=== PATIENT | male | born 1990 | race Caucasian/White ===

== ENCOUNTER 2017-02-16 15:55 | Emergency (ER) | payer OTHER ==
[~2017-02-16] VITALS: Ht 177.8 cm; Wt 86.6 kg
[2017-02-16 16:42] LABS: ABSOLUTE BASOPHIL COUNT 0 /CUMM (0.0-0.2); ABSOLUTE EOSINOPHIL COUNT 0.1 /CUMM (0.0-0.7); ABSOLUTE GRANULOCYTE CT 3.9 /CUMM (1.4-6.5); ABSOLUTE LYMPH COUNT 2.4 /CUMM (1.2-3.4); ABSOLUTE MONOCYTE COUNT 0.7 /CUMM (0.10-0.60); BASOPHIL % 0.5 % (0.0-2.0); EOSINOPHIL % 1.2 % (0-5); GRANULOCYTE % 55.2 % (42.2-75.2); HEMATOCRIT 45.2 % (42-52); MEAN CORPUSCULAR HGB CONC 33.5 G/DL (33.0-37.0); MEAN CORPUSCULAR VOLUME 89.5 FL (80.0-94.0); MEAN PLATELET VOLUME 8.5 FL (7.4-10.4); PLATELET COUNT 210 /CUMM (130-400); RBC DISTRIBUTION WIDTH 13.1 % (11.5-14.5); RED BLOOD CELL CT 5.05 /CUMM (4.70-6.10); WHITE BLOOD CELL COUNT 7.2 /CUMM (4.8-10.8)
--- NOTE | 2017-02-16 17:21 | ED SYNCOPE COMPLAINT ---
History of Present Illness General Chief Complaint: Syncope and Near-Syncope Stated Complaint: ?SYNCOPAL EPISODE Source: patient, family Exam Limitations: no limitations Vital Signs & Intake/Output Vital Signs & Intake/Output Vital Signs Date Time Temp Pulse Resp B/P Pulse O2 O2 Flow FiO2 Ox Delivery Rate 02/16 1758 97.7 63 16 114/54 100 Room Air 02/16 1647 Room Air 02/16 1558 96.5 68 18 123/77 98 Room Air Allergies Coded Allergies: cefaclor (From CECLOR) (Mild, RASH 02/16/17) Reconcile Medications No Known Home Medications Triage Note: TRIAGE: PT BROUGHT TO ER BY S/P SYNCOPAL EPISODE WHILE SITTING IN CAR. STATES HE WAS IN FRONT PASSENGER SEAT OF CAR GOING FROM [employer] [facility] TO HIS HOUSE WHEN HE FELT LIGHTHEADED, DIZZY AND THEN THE "TUNNEL EFFECT". STATED LOC FOR APPROX A MINUTE. STATES WAS IN HOSPITAL IN THE PAST FOR FAINTING EPISODE, "WE PRETTY MUCH RULED EVERYTHING OUT EXCEPT FOR LYME DISEASE, I NEVER GOT THE RESULTS FOR THAT". COMPLAINS ONLY OF PAIN TO LOW BACK SINCE 2 PM TODAY AFTER LIFTING WEIGHTS. Triage Nurses Notes Reviewed? yes HPI: 26-year-old male with syncope. He is brought in by private auto with his . They had just finished shopping when he was in the car on the way home where he started to feel lightheaded, dizzy, pale, diaphoretic, vision closing in on him and passed out for about a minute. There was no seizure-like activity. Patient did lose a little bit of urine when he passed out, he did say he had to urinate prior to the syncopal episode. He has no chest pain, no headaches, no nausea no vomiting no confusion. He denied any palpitations chills or sweats or fever recently. He did state that he had suffered some back pain while exercising earlier this morning, rated as an 8 out of 10 at maximum but he was not having significant back pain at the time of the syncopal event. He woke without significant confusion and shortly after the syncopal episode, within a few minutes, he felt back to normal. He has a history of syncope in the past, states that he was at [facility] for 3 days after having high fever and syncope, it was thought as though he had a tickborne illness and was treated with doxycycline. He has not had cardiology follow-up since and has had no syncopal issues. He states he normally has a resting heart rate in the 50s sometimes goes into the 40s, he confirms is because he is wearing a watch that monitors his heart rate and exercise (OSIRIS POLANCO) Past History Travel History Traveled to [place] past 21 day No Medical History Any Pertinent Medical History? see below for history Neurological: NONE EENT: NONE Cardiovascular: NONE Respiratory: NONE Gastrointestinal: NONE Hepatic: NONE Renal: NONE Musculoskeletal: NONE Psychiatric: NONE Endocrine: NONE Blood Disorders: NONE Cancer(s): NONE TECHNICIAN ASSISTANT/Reproductive: NONE Other Medical Hx: Syncope Surgical History Surgical History: none Psychosocial History What is your primary language Ukrainian Tobacco Use: Never used ETOH Use: occasional use Illicit Drug Use: denies illicit drug use Family History Hx Contributory? No (OSIRIS POLANCO) Review of Systems Review of Systems Constitutional: Reports: see HPI. EENTM: Reports: no symptoms. Respiratory: Reports: no symptoms. Cardiovascular: Reports: no symptoms. GI: Reports: no symptoms. Genitourinary: Reports: no symptoms. Musculoskeletal: Reports: no symptoms. Skin: Reports: no symptoms. Neurological/Psychological: Reports: no symptoms. All Other Systems: Reviewed and Negative (OSIRIS POLANCO) Physical Exam Physical Exam Cranial Nerves: normal hearing, normal speech, PERRL Comments: Well-developed well-nourished person in no acute distress HEENT: Normal EENT exam, extraocular motion intact, no nystagmus. Pupils equally round and reactive to light. Nose is atraumatic. External auditory canal and Tympanic membranes clear. Pharynx normal. No swelling or edema. Neck: Supple, no lymphadenopathy, normal range of motion without pain or tenderness Back: Nontender, no CVA tenderness. Full range of motion Cardiovascular: Regular rate and rhythms no murmurs, normal JVP Respiratory: Chest nontender. No respiratory distress. Breath sounds clear to auscultation bilaterally Abdomen: Soft, nontender nondistended, no appreciable organomegaly. Normal bowel sounds. No ascites Extremity: No edema, no calf tenderness to palpation, normal and equal pulses. Neuro: Alert oriented x3, motor sensory normal, cranial nerves II through XII grossly intact. Skin: No appreciable rash on exposed skin, skin is warm and dry. Psych: Mood and affect is normal, memory and judgment is normal. Core Measures ACS in differential dx? Yes CVA/TIA Diagnosis: No Severe Sepsis Present: No Septic Shock Present: No (OSIRIS POLANCO) Progress Differential Diagnosis: AMI, aortic dissection, aortic valve, drug induced syncope, hyperventilation, orthostatic syncope, other valvular disease, pacemaker malfunction, pericardial tamponade, pulmonary embolus, seizure, sick sinus syndrome, subarachnoid hem., TIA/CVA, vasodepressor syncope, ventricular tach/fib Plan of Care: Orders Procedure Date/time Status COMPREHENSIVE METABOLIC PANEL 02/16 1604 Complete CBC WITHOUT DIFFERENTIAL 02/16 1604 Complete EKG 02/16 1603 Active Laboratory Tests 02/16/17 1613: Anion Gap 14, Estimated GFR > 60, BUN/Creatinine Ratio 15.5, Glucose 104 H, Calcium 9.7, Total Bilirubin 0.7, AST 38, ALT 38, Alkaline Phosphatase 80, Total Protein 7.9, Albumin 4.7, Globulin 3.2, Albumin/Globulin Ratio 1.5, CBC w Diff NO MAN DIFF REQ, RBC 5.05, MCV 89.5, MCH 30.0, RDW 13.1, MPV 8.5, Gran % 55.2, Lymphocytes % 33.6, Monocytes % 9.5 H, Eosinophils % 1.2, Basophils % 0.5, Absolute Granulocytes 3.9, Absolute Lymphocytes 2.4, Absolute Monocytes 0.7 H, Absolute Eosinophils 0.1, Absolute Basophils 0, PUBS MCHC 33.5 Initial ED EKG: normal sinus rhythm, rate (60), no ST T wave changes Rhythm Strip: normal sinus rhythm (50-65bpm) Comments: Patient's labs are negative, he was monitored on a monitor tech throughout his stay here and there are no arrhythmias, he did bradycardia down into the upper 40s but states this is usual for him. When likely patient had a vasovagal syncope however he has never had an outpatient cardiology follow-up. I recommended this for him. He is completely asymptomatic here and stable for discharge home with instructions to call for an appointment with waste machine offbearer (OSIRIS POLANCO) Departure Departure Disposition: HOME OR SELF CARE Condition: Stable Clinical Impression Primary Impression: Syncope Referrals: UNKNOWN (PCP/Family) MIGUEL GÓMEZ MD Additional Instructions: Follow-up with waste machine offbearer as outpatient, call to make an appointment Avoid strenuous activity for the next few days Drink plenty of fluids Return with any other further concerns of feeling lightheaded dizzy week chest pain palpitations or feeling as if you're going to pass out Departure Forms: Customer Survey General Discharge Information Prescriptions: Current Visit Scripts No Known Home Medications (LILIAN JEROME,OSIRIS) PA/CIGAR ROLLER Co-Sign Statement Statement: ED Attending supervision documentation- [] I saw and evaluated the patient. I have also reviewed all the pertinent lab results and diagnostic results. I agree with the findings and the plan of care as documented in the PA's/CIGAR ROLLER's documentation. [X] I have reviewed the ED Record and agree with the PA's/CIGAR ROLLER's documentation. [] Additions or exceptions (if any) to the PAs/CIGAR ROLLER's note and plan are summarized below: [] (ZAY GONZALEZ,LAURA Gusman)
[2017-02-16 17:58] VITALS: BP 114/54
== END 2017-02-16 18:45 ==
LOC: ERH 15:55
PROVIDERS: Emergency Medicine
DX: R55 Syncope and collapse (principal)
CPT/HCPCS: 93005; 93010